=== PATIENT | female | born 1940 | race Caucasian/White ===

== ENCOUNTER 2025-09-06 13:26 | Emergency (ER) | payer MEDICARE, OTHER ==
[~2025-09-06] VITALS: Ht 165.1 cm; Wt 84.0 kg
[~2025-09-06 13:26] MED LIST: ASPIRIN325 MG PO; CALCIUM 600 +1 EAC5 PO; CLOBETASOL EMOL15 GM; HYDROCHLOROTH12.5 MG PO; KENALOG-1010 MG/1 ML INJ; VOLTAREN100 GM; ZETIA10 MG PO; [UNRECOGNIZED DRUG - OTHER]
[2025-09-06] MEDS: DOXYCYCLINE HYCLATE TABLET 100 MG TAB PO ONE (13:57)
[2025-09-06] MEDS: TETANUS/DIPHTHERIA TOX ADULT 0.5 ML SYR IM ONE (13:58)
[2025-09-06] MEDS: BACITRACIN ZINC 0.9GM TP ONE (14:06)
[2025-09-06] MEDS ORDERED: SODIUM CHLORIDE 0.9% 250ML 250 ML ONE (14:49)
[2025-09-06] MEDS ORDERED: Vancomycin IV 1 GM VIAL ONE (14:49)
[2025-09-06] MEDS: Vancomycin IV 1 GM in SODIUM CHLORIDE 0.9% 250ML 250 ML IV ONE (15:11)
[2025-09-06 16:24] VITALS: PULSE 70; RESP 20; TEMP 98.1; O2SAT 95
== END 2025-09-06 16:55 | disposition other institution (70) ==
LOC: FSED 13:32
DX: S51.011A Laceration without foreign body of right elbow, initial encounter (principal); S90.412A Abrasion, left great toe, initial encounter; S90.411A Abrasion, right great toe, initial encounter; W18.39XA Other fall on same level, initial encounter; Y93.01 Activity, walking, marching and hiking; Y92.89 Other specified places as the place of occurrence of the external cause; Z79.01 Long term (current) use of anticoagulants; I10 Essential (primary) hypertension; I50.9 Heart failure, unspecified; E78.5 Hyperlipidemia, unspecified; Z85.42 Personal history of malignant neoplasm of other parts of uterus
CPT/HCPCS: 73080; 80053; 85025; 90471; 90714; 99284; J3373; J7050